=== PATIENT | female | born 1990 | race Caucasian/White ===

== ENCOUNTER 2018-02-10 18:34 | Inpatient (IN) | payer OTHER ==
[2018-02-10] MEDS ORDERED: MISOPROSTOL 200 MCG TAB PR (21:00)
[2018-02-10] MEDS ORDERED: OXYTOCIN 30 UNITS/LR 500 ML IV ×2 (21:00)
[2018-02-10] MEDS ORDERED: LIDOCAINE 1% (MPF) 30 ML INJ INJ (21:00)
[2018-02-10] MEDS ORDERED: CARBOPROST 250 MCG INJ IM (21:00)
[2018-02-10] MEDS ORDERED: BUTORPHANOL 2 MG INJ IV (21:00)
[2018-02-10] MEDS ORDERED: METHYLERGONOVINE 0.2 MG INJ IM (21:00)
[2018-02-10] MEDS: LACTATED RINGER'S 1,000 ML IV* ×3 (21:15→23:32)
[2018-02-10 21:43] LABS: ADD MAN DIFF? NO
[2018-02-10 21:54] LABS: WHITE BLOOD COUNT 10.1 10^3/ul (4.8-10.8)
[2018-02-10 21:54] LABS: BASOPHILS % 0.4 % (0.0-2.0); EOSINOPHILS # 0.4 10^3/ul (0.0-0.5); EOSINOPHILS % 3.9 % (0.0-7.0); HEMATOCRIT 32.6 % (37.0-47.0); LYMPHOCYTES # 1.6 10^3/ul (0.8-2.9); LYMPHOCYTES % 16.3 % (15.0-51.0); MEAN CORPUSCULAR HEMOGLOBIN 30.7 pg (29.0-33.0); MEAN CORPUSCULAR HGB CONC 33.7 g/dl (32.0-37.0); MEAN CORPUSCULAR VOLUME 91.1 fl (82.0-101.0); MEAN PLATELET VOLUME 9.4 fl (7.4-10.4); MONOCYTES % 9.8 % (0.0-11.0); NEUTROPHILS % 68.9 % (39.0-77.0); PLATELET COUNT 273 10^3/UL (140-415); RED BLOOD COUNT 3.58 10^6/ul (4.20-5.40); RED CELL DISTRIBUTION WIDTH 12.1 % (11.5-14.5)
[2018-02-10 22:14] LABS: INR 0.92; PARTIAL THROMBOPLASTIN TIME 24.6 Sec (25.0-35.0); PROTIME 12.4 Sec (11.9-14.9)
[2018-02-10] MEDS ORDERED: FENTAnyl 2MCG/ML-ROPIV 0.2% 100 ML (22:32)
[2018-02-10 22:37] LABS: HEPATITIS B SURFACE ANTIGEN NEGATIVE (NEGATIVE)
[2018-02-10] MEDS ORDERED: NALOXONE (0.4 MG/ML) INJ IV (23:30)
[2018-02-10] MEDS ORDERED: DIPHENHYDRAMINE 50 MG INJ IV (23:30)
[2018-02-10] MEDS: OXYTOCIN 30 UNITS/LR 500 ML IV (23:34)
[2018-02-11] MEDS: LACTATED RINGER'S 1,000 ML IV* ×2 (04:40→21:17)
[2018-02-11] MEDS: FENTAnyl 2MCG/ML-ROPIV 0.2% 100 ML BAG EPI (05:48)
[2018-02-11] MEDS: ONDANSETRON 4 MG INJ IV (07:17)
[2018-02-11] MEDS: OXYTOCIN 30 UNITS/LR 500 ML IV ×2 (10:40→15:03)
[2018-02-11] MEDS: IBUPROFEN 600 MG TAB PO (11:38)
[2018-02-11] MEDS: HYDROCODONE/APAP (5/325) TAB PO ×2 (12:26→17:37)
[2018-02-11] MEDS ORDERED: METHYLERGONOVINE 0.2 MG INJ IM (13:30)
[2018-02-11] MEDS ORDERED: DIPHENHYDRAMINE 25 MG CAP PO (13:30)
[2018-02-11] MEDS ORDERED: MAGNESIUM HYDROXIDE 30ML CUP PO (13:30)
[2018-02-11] MEDS ORDERED: OXYTOCIN 30 UNITS/LR 500 ML IV (13:30)
[2018-02-11] MEDS ORDERED: ZOLPIDEM 5 MG TAB PO (13:30)
[2018-02-11] MEDS ORDERED: MISOPROSTOL 200 MCG TAB PR (13:30)
[2018-02-11] MEDS ORDERED: ACETAMINOPHEN 325 MG TAB PO (13:30)
[2018-02-11] MEDS ORDERED: CARBOPROST 250 MCG INJ IM (13:30)
[2018-02-11] MEDS: WITCH HAZEL/GLYCERIN PAD PR (17:30)
[2018-02-11] MEDS: LANOLIN 7 GM TUBE TOP (17:30)
[2018-02-11] MEDS: BENZOCAINE 20% 56 ML SPRAY TOP (17:30)
[2018-02-11] MEDS: IBUPROFEN 800 MG TAB PO ×2 (18:00→23:49)
[2018-02-11 19:16] LABS: RAPID PLASMA REAGIN NONREACTIVE (NR)
[2018-02-11 20:16] LABS: AMPHETAMINE/METHAMPHETAMINE NEGATIVE (NEGATIVE); BARBITURATES NEGATIVE (NEGATIVE); BENZODIAZEPINES NEGATIVE (NEGATIVE); CANNABINOIDS NEGATIVE (NEGATIVE)
[2018-02-11 20:17] LABS: COCAINE NEGATIVE (NEGATIVE); OPIATES POSITIVE (NEGATIVE)
[2018-02-11] MEDS: SENNA/DOCUSATE NA (8.6MG/50MG) TAB PO (21:58)
[2018-02-12] MEDS: LACTATED RINGER'S 1,000 ML IV* ×3 (05:17→21:17)
[2018-02-12] MEDS: IBUPROFEN 800 MG TAB PO ×4 (05:27→23:26)
[2018-02-12 09:01] LABS: ADD MAN DIFF? NO
[2018-02-12 09:17] LABS: BASOPHILS % 0.3 % (0.0-2.0); EOSINOPHILS # 0.4 10^3/ul (0.0-0.5); EOSINOPHILS % 2.8 % (0.0-7.0); HEMATOCRIT 30.3 % (37.0-47.0); HEMOGLOBIN 9.9 g/dl (12.0-16.0); LYMPHOCYTES # 2.6 10^3/ul (0.8-2.9); LYMPHOCYTES % 16.8 % (15.0-51.0); MEAN CORPUSCULAR HEMOGLOBIN 30.3 pg (29.0-33.0); MEAN CORPUSCULAR HGB CONC 32.7 g/dl (32.0-37.0); MEAN CORPUSCULAR VOLUME 92.7 fl (82.0-101.0); MEAN PLATELET VOLUME 9.7 fl (7.4-10.4); MONOCYTE # 1.3 10^3/ul (0.3-0.9); MONOCYTES % 8.2 % (0.0-11.0); NEUTROPHIL # 10.8 10^3/ul (1.6-7.5); PLATELET COUNT 281 10^3/UL (140-415); RED BLOOD COUNT 3.27 10^6/ul (4.20-5.40); RED CELL DISTRIBUTION WIDTH 12.5 % (11.5-14.5)
[2018-02-12 09:17] LABS: WHITE BLOOD COUNT 15.2 10^3/ul (4.8-10.8)
[2018-02-12] MEDS: SENNA/DOCUSATE NA (8.6MG/50MG) TAB PO (23:14)
[2018-02-13] MEDS: LACTATED RINGER'S 1,000 ML IV* ×2 (05:17→13:09)
[2018-02-13] MEDS: IBUPROFEN 800 MG TAB PO ×2 (06:02→12:22)
[2018-02-13] MEDS: VARICELLA VACCINE LIVE/PF 1,350 UNIT/0.5 ML ML SC* (09:00)
[2018-02-13] MEDS: DIPHTH/TET/ACEL PERTUSS (ADULT) 0.5 ML VIAL IM* (09:00)
[2018-02-13] MEDS: MEASLES,MUMPS,RUBELLA VACCINE INJ SC* (09:00)
== END 2018-02-13 15:05 | disposition home or self-care (01) | DRG 775 ==
LOC: L-D 18:34 → PP1 02-11 12:51
PROVIDERS: Obstetrics & Gynecology
PROC: 10E0XZZ Delivery of Products of Conception, External Approach (ICD-10-PCS; principal; 2018-02-10)
PROC: 0HQ9XZZ Repair Perineum Skin, External Approach (ICD-10-PCS; 2018-02-10)
PROC: 3E033VJ Introduction of Other Hormone into Peripheral Vein, Percutaneous Approach (ICD-10-PCS; 2018-02-10)
DX: O70.0 First degree perineal laceration during delivery (principal); Z3A.39 39 weeks gestation of pregnancy; Z37.0 Single live birth
CPT/HCPCS: 62319; 80307; 85025; 85610; 85730; 86592; 86850; 86900; 86901; 87340